=== PATIENT | female | born 1945 | race Caucasian/White ===

== ENCOUNTER 2016-09-03 15:05 | Emergency (ER) | payer MEDICARE ==
[2016-09-03] MEDS ORDERED: OPTIRAY 350 100 ML VIAL HMH IV ONE (15:06)
== END 2016-09-03 21:08 | disposition other institution (70) ==
LOC: ER 15:05
DX: K92.0 Hematemesis (principal); K92.1 Melena; F17.290 Nicotine dependence, other tobacco product, uncomplicated; Z79.899 Other long term (current) drug therapy; I10 Essential (primary) hypertension
CPT/HCPCS: 36415; 74175; 80053; 81001; 82274; 85025; 85610; 85730; 86850; 86900; 86901; 99291; Q9967